=== PATIENT | female | born 1995 | race Caucasian/White ===

== ENCOUNTER → 2018-10-22 | Outpatient (CLI) | payer OTHER ==
--- NOTE | 2018-10-22 15:39 | RADIOLOGY REPORT (SQ) ---
EXAM DESCRIPTION: HYSTEROSALPINGOGRAM; HYSTERO CATH/INJECTION COMPLETED DATE/TIME: 10/22/2018 2:36 pm REASON FOR STUDY: N97.9 FEMALE INFERTILITY, UNSPECIFIED; INFERTILITY N97.9 FEMALE INFERTILITY, UNSP ECIFIED COMPARISON: None. PROCEDURE: PRE-PROCEDURE: Procedure was explained to the patient. She was told to expect cramping du ring the procedure, and possible spotting post procedure. PROCEDURE: The cervix was prepped in sterile fashion. Under direct visual inspection, the cervix was cannulated with the hysterosalpingogram catheter and contrast injected. TECHNIQUE: Temporal fluoroscopic images acquired during the procedure stored to PACS. FLUOROSCOPY TIME: LESS THAN 1 SECOND 12 DIGITAL fluoroscopic images saved to PACS. LIMITATIONS: None. FINDINGS: UTERUS: The endometrial surface has a nodular contour. Endometrial polyps or cysts may be present. No synechiae. RIGHT ADNEXA: Normal size fallopian tube. Free spill of contrast into the peritoneal cavity. LEFT ADNEXA: Normal size fallopian tube. Free spill of contrast into the peritoneal cavity. POST PROCEDURE: The patient tolerated the procedure with no adverse effects. IMPRESSION: Patent fallopian tubes bilaterally. Nodular endometrial contour without synechiae. Question endometrial cysts or polyps. COMMENT: Quality ID [id number]: Final reports for procedures using fluoroscopy that document radiation exp osure indices, or exposure time and number of fluorographic images (if radiation exposure indices are not available) TECHNICAL DOCUMENTATION: JOB ID: [id number] [employer]- All Rights Reserved Reading location - IP/workstation name: [email or web address]
== END ==
LOC: RAD 13:51
PROVIDERS: ATTEND Obstetrics & Gynecology
DX: N97.9 Female infertility, unspecified (principal)
CPT/HCPCS: 58340; 74740